=== PATIENT | male | born 1945 | race American Indian/Alaskan Native ===

== ENCOUNTER 2016-06-21 12:43 | Outpatient (CLI) | payer OTHER ==
--- NOTE | 2016-06-21 14:54 | Magnetic Resonance Report ---
MRI LUMBAR SPINE WITHOUT CONTRAST INDICATION: Lumbar disc disease. COMPARISON: None similar. FINDINGS: Noncontrast axial and sagittal T1 and T2-weighted MRI of the lumbar spine attempted, though extremely limited due to motion. Normal conus medullaris terminating behind T12-L1. Advanced lumbar degenerative changes noted except for relatively spared L1-L2 and L3-L4 disc heights. Severe L2-L3 and L4-L5 disc narrowing with endplate irregularities and adjacent Modic degenerative changes. Similar moderate changes at L5-S1 as well. Mild active edema noted in L4 and L5 vertebral bodies to the left. Infrarenal abdominal aortic ectasia/borderline aneurysmal, approximately 2.9 cm AP caliber. On the obtained axial images: T12-L1 and L1-L2 are unremarkable. AP thecal sac caliber at L1-L2 is approximately 1.2 cm. L2-L3 demonstrates diffuse disc bulge/osteophyte complex. Mild, left more than right ligamentum flavum hypertrophy. Moderate spinal stenosis with AP thecal sac caliber of approximately 0.7 cm. Mild to moderate bilateral neural foraminal narrowing/undercutting also noted. L3-L4 demonstrates mild diffuse disc bulge, slightly more prominent in the right foraminal distribution. Mild, left more than right ligamentum flavum hypertrophy. AP thecal sac caliber is approximately 0.7 cm. Mild bilateral neural foraminal narrowing/undercutting. L4-L5 also demonstrates mild diffuse disc/osteophyte complex with moderate, right more than left neural foraminal narrowing/undercutting. Mild bilateral facet arthropathy. Thecal sac caliber estimated at 1.2 cm. L5-S1 demonstrates mild disc bulge/osteophyte complex. No significant stenosis, though bilateral neural foraminal narrowing/undercutting noted. Mild bilateral facet arthropathy as well. CONCLUSION: 1. Multilevel lumbar spine degenerative changes noted on this limited exam, greatest at L2-L3 and L3-L4 with at least moderate spinal stenosis. 2. Few other findings, including additional lower lumbar degenerative changes and infrarenal abdominal aortic ectasia/borderline aneurysm, as described. Thank you for the opportunity to participate in this patient's care.
== END 2016-06-21 12:44 | disposition home or self-care (01) ==
LOC: MRI 12:43
PROVIDERS: ATTEND Internal Medicine
DX: M48.06 Spinal stenosis, lumbar region (principal); M47.897 Other spondylosis, lumbosacral region; I77.811 Abdominal aortic ectasia; M12.88 Other specific arthropathies, not elsewhere classified, other specified site; M24.28 Disorder of ligament, vertebrae; M25.78 Osteophyte, vertebrae; R60.9 Edema, unspecified; Z90.79 Acquired absence of other genital organ(s); Z98.890 Other specified postprocedural states
CPT/HCPCS: 72148

== ENCOUNTER 2016-09-08 14:05 | Outpatient (CLI) | payer OTHER ==
--- NOTE | 2016-09-08 14:44 | Cat Scan Report ---
CT scan of lumbar spine: History: Lumbar stenosis. Technique: Computerized axial tomographic images were obtained this is a colonic obstruction. Findings: Normal height of vertebral bodies. Marked decrease in height of L2-L3, L4-L5 and L5-S1 interspaces. Sclerotic adjacent articular surfaces with peripheral osteophytes suggestive of severe degenerative changes. L1-L2. Normal. L2-L3. Severe bilateral neuroforaminal narrowing secondary to disc osteophyte complex and degenerative facet joints with mild central canal spinal stenosis. L3-L4. Bilateral moderate neural foramina narrowing secondary to disc osteophyte complex and degenerative facet joints with ligamentum flavum hypertrophy. Mild central canal spinal stenosis. L4-L5. Severe bilateral neural foramina narrowing secondary disc osteophyte complex and degenerative facet joints. Mild central canal spinal stenosis. . L5-S1. Severe bilateral neural foramina narrowing secondary to disc osteophyte complex and degenerative facet joints. No definite central canal spinal stenosis. Impression: Multilevel bilateral neural foramina narrowing and central canal spinal stenosis secondary to degenerative changes as detailed above.
== END 2016-09-08 14:06 | disposition home or self-care (01) ==
LOC: CT 14:05
PROVIDERS: ATTEND Internal Medicine
DX: M48.06 Spinal stenosis, lumbar region (principal); M47.896 Other spondylosis, lumbar region; M24.28 Disorder of ligament, vertebrae; M25.78 Osteophyte, vertebrae; I10 Essential (primary) hypertension
CPT/HCPCS: 72131